=== PATIENT | male | born 1945 | race Caucasian/White ===

== ENCOUNTER 2025-04-03 11:07 | Inpatient (IN) | payer OTHER ==
[~2025-04-03] VITALS: Ht 167.6 cm; Wt 93.8 kg
--- NOTE | 2025-04-03 11:24 | ED.PDOC ---
HPI Comments This is a 79 year-old male who presents to the ED with a chief complaint of substernal chest pressure and mild SOB as of today. Patient reports Chief Complaint: Chest Pain Time Seen by MD: 11:24 Reviewed Notes: Medications, Allergies Allergies: Coded Allergies: Allopurinol (Verified Allergy, Unknown, 04/03/25) Information Source: Patient Mode of Arrival: Ambulatory Severity: Moderate Duration: Since onset Location: Substernal Constitutional: denies: chills, diaphoresis, fatigue, fever, malaise, sweats, weakness, others EENTM: denies: blurred vision, double vision, ear bleeding, ear discharge, ear drainage, ear pain, ear ringing, eye pain, eye redness, hearing loss, mouth pain, mouth swelling, nasal discharge, nose bleeding, nose congestion, nose pain, photophobia, tearing, throat pain, throat swelling, voice changes, others Respiratory: denies: cough, hemoptysis, orthopnea, SOB at rest, shortness of breath, SOB with excertion, stridor, wheezing, others Cardiovascular: reports: chest pain; denies: dizzy spells, diaphoresis, Dyspnea on exertion, edema, irregular heart beat, left arm pain, lightheadedness, palpitations, PND, syncope, others Gastrointestinal: denies: abdomen distended, abdominal pain, blood streaked bowels, constipated, diarrhea, dysphagia, difficulty swallowing, hematemesis, melena, nausea, poor appetite, poor fluid intake, rectal bleeding, rectal pain, vomiting, others Genitourinary: denies: burning, dysuria, flank pain, frequency, hematuria, incontinence, penile discharge, penile sore, pain, testicle pain, testicle swelling, urgency, others Neurological: denies: dizziness, fainting, headache, left sided numbness, left sided weakness, numbness, paresthesia, pre-existing deficit, right sided numbness, right sided weakness, seizure, speech problems, tingling, tremors, weakness, others Musculoskeletal: denies: back pain, gout, joint pain, joint swelling, muscle pain, muscle stiffness, neck pain, others Integumetry: denies: bruises, change in color, change in hair/nails, dryness, laceration, lesions, lumps, rash, wounds, others Allergic/Immunocompromised: denies: Difficulty Healing, Frequent Infections, Hives, Itching, others Hematologic/Lymphatic: denies: anemia, blood clots, easy bleeding, easy bruising, swollen glands, others Endocrine: denies: excessive hunger, excessive sweating, excessive thirst, excessive urination, flushing, intolerance to cold, intolerance to heat, unexplained weight gain, unexplained weight loss, others Psychiatric: denies: anxiety, bipolar disorder, depression, hopeless, panic disorder, schizophrenia, sleepless, suicidal, others All Other Systems: Reviewed and Negative EKG EKG : Pulse Rate (adult): 63 [place]: Normal Cardiac Rhythm: NSR Block: None Hypertrophy: None ST: Normal Comments Arrhythmia Was a procedure done? Was a procedure done?: No CP Differential Dx Differential Diagnosis: Angina, Anxiety / Panic Attack, Sinus Tachycardia Differential Diagnosis: HTN Essential Differential Diagnosis: Angina, Aortic dissection, Cholelithiasis, Gastritis, Pneumonia X-Ray, Labs, Meds, VS Vital Signs Date Time Temp Pulse Resp B/P (MAP) Pulse Ox O2 Delivery O2 Flow Rate FiO2 04/03/25 11:24 63 04/03/25 11:20 63 04/03/25 11:09 97.4 53 18 159/114 98 97.4 Lab Test 04/03/25 11:24 Range/Units White Blood Count 9.2 4.4-10.8 10^3/uL Red Blood Count 4.75 4.5-5.90 10^6/uL Hemoglobin 15.7 13.5-17.5 g/dL Hematocrit 44.7 41.0-53.0 % Mean Corpuscular Volume 93.9 80.0-100.0 fL Mean Corpuscular Hemoglobin 33.0 H 28.0-32.0 pg Mean Corpuscular Hemoglobin Concent 35.1 32.0-36.0 g/dL Red Cell Distribution Width 14.0 11.8-14.3 % Platelet Count 237 140-450 10^3/uL Mean Platelet Volume 8.2 6.9-10.8 fL Neutrophils (%) (Auto) 69.2 37.0-80.0 % Lymphocytes (%) (Auto) 18.5 10.0-50.0 % Monocytes (%) (Auto) 7.5 0.0-12.0 % Eosinophils (%) (Auto) 3.7 0.0-7.0 % Basophils (%) (Auto) 1.1 0.0-2.0 % Neutrophils # (Auto) 6.4 1.6-8.6 10 ^3/uL Lymphocytes # (Auto) 1.7 0.4-5.4 10 ^3/uL Monocytes # (Auto) 0.7 0-1.3 10 ^3/uL Eosinophils # (Auto) 0.3 0-0.8 10 ^3/uL Basophils # (Auto) 0.1 0-0.2 10 ^3/uL Nucleated Red Blood Cells 0.5 % Sodium Level Pending Potassium Level Pending Chloride Level Pending Carbon Dioxide Level Pending Anion Gap Pending Blood Urea Nitrogen Pending Creatinine Pending Glomerular Filtration Rate Calc Pending BUN/Creatinine Ratio Pending Serum Glucose Pending Calcium Level Pending Troponin I High Sensitivity Pending Images Reviewed?: Images reviewed and evaluated by me Time of 1ST Reevaluation: 12:31 Reevaluation 1ST: Unchanged Patient Education/Counseling: Diagnosis, Treatment Family Education/Counseling: No Family Present SEPSIS Sepsis Screen Date sepsis recognized/suspect: Apr 03, 2025 Time Sepsis recognized/suspect: 1112 Recent Procedure: No On Antibiotic Therapy: No Respiratory Rate >20: No Heart Rate >90: No Temp<36 C (96.8 F) or >38.3 C: No SBP <90 or MAP <65 mmHG: No New Acute Mental Status Change: No Is the patient on CPAP, BIPAP,: No Physician Orders Chest Portable (04/03/25 11:16) Troponin-I Hs (04/03/25 11:16) Electrocardigram (04/03/25 11:16) Troponin-I Hs (04/03/25 12:16) Troponin-I Hs (04/03/25 14:16) Electrocardigram (04/03/25 12:16) Electrocardigram (04/03/25 14:16) Basic Metabolic Panel (04/03/25 11:16) Vital Signs Date Time Temp Pulse Resp B/P (MAP) Pulse Ox O2 Delivery O2 Flow Rate FiO2 04/03/25 11:24 63 04/03/25 11:20 63 04/03/25 11:09 97.4 53 18 159/114 98 97.4 Laboratory Tests Test 04/03/25 11:24 White Blood Count 9.2 10^3/uL (4.4-10.8) Critical Care Note Critical Care Time?: No Stability Stability form required: No Heart Score Heart Score: Heart Score Response (Comments) Value History Moderate Suspicious 1 EKG Normal 0 Age >65 2 Risk Factors N/A 0 Troponin N/A 0 Total 3 I personally scribed for CARLOS HORVATH MD ([email or web address]) on 04/03/25 at 11:24. Electronically submitted by Nellie Downing ([employer]). I personally scribed for CARLOS HORVATH MD ([email or web address]) on 04/03/25 at 11:48. Electronically submitted by Nellie Downing ([employer]). CARLOS HORVATH MD Apr 03, 2025 11:24
[2025-04-03 11:33] LABS: Hematocrit 44.7 % (41.0-53.0); Hemoglobin 15.7 g/dL (13.5-17.5); Mean Corpuscular Hemoglobin 33.0 pg (28.0-32.0); Mean Corpuscular Volume 93.9 fL (80.0-100.0); Nucleated Red Blood Cells % 0.5 %
[2025-04-03 11:43] LABS: Chloride 105 mmol/L (98-107); Potassium 4.0 mmol/L (3.5-5.1); Sodium 142 mmol/L (136-145)
[2025-04-03 11:44] LABS: Anion Gap 12 (5-15); Carbon Dioxide 25 mmol/L (20-31)
[2025-04-03 11:45] LABS: Calcium 9.5 mg/dL (8.7-10.4)
[2025-04-03 11:50] LABS: BUN/Creatinine Ratio 13.8 (10.0-20.0); Blood Urea Nitrogen 23 mg/dL (9-23)
[2025-04-03 11:52] LABS: Glucose 128 mg/dL (74-106)
--- NOTE | 2025-04-03 11:52 | ED.PDOC ---
History of Present Illness HPI Comments This is a 79 year-old male with a PMHx of Hypotension, DM, and thyroid, who presents to the ED with a chief complaint of wellness check. Patient reports experiencing chest pain yesterday, radiating to back. Patient came to the ED today upon epigastric abdominal "pressure" like sensation and mild SOB. Patient denies any currently chest pain or further symptoms at this time. Patients vitals are stable upon evaluation. Chief Complaint: Chest Pain Time Seen by MD: 11:27 Reviewed Notes: Medications, Allergies Allergies: Coded Allergies: Allopurinol (Verified Allergy, Unknown, 04/03/25) Home Meds Reported Medications Levothyroxine Sodium (Levothyroxine Sodium) 112 Mcg Tab, 1 TAB PO DAILY, #30 TAB 5 Refills 04/03/25 Febuxostat (Uloric) 40 Mg Tab, 1 TAB PO DAILY, #90 TAB 1 Refill 04/03/25 Atenolol (Atenolol) 25 Mg Tab, 1 TAB PO DAILY, #30 TAB 5 Refills 04/03/25 Hydrochlorothiazide (Hydrochlorothiazide) 25 Mg Tab, 1 TAB PO DAILY, #30 TAB 5 Refills 04/03/25 Amlodipine Besylate (NORVASC TABLET) 5 Mg Tb, 1 TAB PO DAILY, #30 TAB 5 Refills 04/03/25 Apixaban Base (ELIQUIS) 5 Mg Tab, 5 MG PO BID, TAB 04/03/25 Losartan Potassium (Losartan Potassium) 50 Mg Tab, 1 TAB PO DAILY, #30 TAB 5 Refills 04/03/25 Information Source: Patient Mode of Arrival: Ambulatory Severity: Moderate Timing: Hours Duration: Since onset Past Medical History PAST MEDICAL HISTORY: High Lipids, Hypotension, Thyroid Surgical History: Denies all surgeries Family History Family History: Reviewed,noncontributory to illness, No family hx of Cancer, No family hx of DM, No family hx of Heart vicky, No family hx of HTN, No family hx ofKidney vicky, No family hx of Liver vicky, No family hx of Lung vicky, No family hx of Stroke Social History Smoker: Non-Smoker Alcohol: Denies ETOH Use Drugs: Denies Drug Use Lives In: Home Constitutional: denies: chills, diaphoresis, fatigue, fever, malaise, sweats, weakness, others EENTM: denies: blurred vision, double vision, ear bleeding, ear discharge, ear drainage, ear pain, ear ringing, eye pain, eye redness, hearing loss, mouth pain, mouth swelling, nasal discharge, nose bleeding, nose congestion, nose pain, photophobia, tearing, throat pain, throat swelling, voice changes, others Respiratory: reports: shortness of breath; denies: cough, hemoptysis, orthopnea, SOB at rest, SOB with excertion, stridor, wheezing, others Cardiovascular: reports: chest pain; denies: dizzy spells, diaphoresis, Dyspnea on exertion, edema, irregular heart beat, left arm pain, lightheadedness, palpitations, PND, syncope, others Gastrointestinal: reports: abdominal pain (epigastric pressure ); denies: abdomen distended, blood streaked bowels, constipated, diarrhea, dysphagia, difficulty swallowing, hematemesis, melena, nausea, poor appetite, poor fluid intake, rectal bleeding, rectal pain, vomiting, others Genitourinary: denies: burning, dysuria, flank pain, frequency, hematuria, incontinence, penile discharge, penile sore, pain, testicle pain, testicle swelling, urgency, others Neurological: denies: dizziness, fainting, headache, left sided numbness, left sided weakness, numbness, paresthesia, pre-existing deficit, right sided numbness, right sided weakness, seizure, speech problems, tingling, tremors, weakness, others Musculoskeletal: denies: back pain, gout, joint pain, joint swelling, muscle pain, muscle stiffness, neck pain, others Integumetry: denies: bruises, change in color, change in hair/nails, dryness, laceration, lesions, lumps, rash, wounds, others Allergic/Immunocompromised: denies: Difficulty Healing, Frequent Infections, Hives, Itching, others Hematologic/Lymphatic: denies: anemia, blood clots, easy bleeding, easy bruising, swollen glands, others Endocrine: denies: excessive hunger, excessive sweating, excessive thirst, excessive urination, flushing, intolerance to cold, intolerance to heat, unexplained weight gain, unexplained weight loss, others Psychiatric: denies: anxiety, bipolar disorder, depression, hopeless, panic disorder, schizophrenia, sleepless, suicidal, others All Other Systems: Reviewed and Negative Physical Exam General Appearance: Moderate Distress HEENT: Normal ENT Inspection, Pharynx Normal, TMs Normal Neck: Full Range of Motion, Non-Tender, Normal, Normal Inspection Respiratory: Chest Non-Tender, Lungs Clear, No Accessory Muscle Use, No Respiratory Distress, Normal Breath Sounds Cardiovascular: No Edema, No JVD, No Murmur, No Gallop, Normal Peripheral Pulses, Regular Rate/Rhythm Breast Exam: Deferred Gastrointestinal: No Organomegaly, Non Tender, No Pulsatile Mass, Normal Bowel Sounds, Soft Genitalia: Deferred Pelvic: Deferred Rectal: Deferred Extremities: No calf tenderness, Normal capillary refill, Normal inspection, Normal range of motion, Non-tender, No pedal edema Musculoskeletal : Apperance: Normal Neurologic: Alert, house admin II-XII nml as Tested, No Motor Deficits, Normal Affect, Normal Mood, No Sensory Deficits Cerebellar Function: Normal Reflexes: Normal Skin: Dry, Normal Color, Warm Peripheral Pulses: 3+ Radial (R), 3+ Radial (L) Lymphatic: No Adenopathy Was a procedure done? Was a procedure done?: No Differential Dx Considerations may include: Anemia Electrolyte imbalance X-Ray, Labs, Meds, VS Vital Signs Date Time Temp Pulse Resp B/P (MAP) Pulse Ox O2 Delivery O2 Flow Rate FiO2 04/03/25 13:46 73 17 96 Room Air 04/03/25 13:46 97.6 63 17 169/87 (114) 96 97.6 04/03/25 12:34 53 04/03/25 11:24 63 04/03/25 11:20 63 04/03/25 11:09 97.4 53 18 159/114 98 97.4 Lab Test 04/03/25 12:20 04/03/25 11:24 Range/Units Troponin I High Sensitivity 5 4 </=54 ng/L White Blood Count 9.2 4.4-10.8 10^3/uL Red Blood Count 4.75 4.5-5.90 10^6/uL Hemoglobin 15.7 13.5-17.5 g/dL Hematocrit 44.7 41.0-53.0 % Mean Corpuscular Volume 93.9 80.0-100.0 fL Mean Corpuscular Hemoglobin 33.0 H 28.0-32.0 pg Mean Corpuscular Hemoglobin Concent 35.1 32.0-36.0 g/dL Red Cell Distribution Width 14.0 11.8-14.3 % Platelet Count 237 140-450 10^3/uL Mean Platelet Volume 8.2 6.9-10.8 fL Neutrophils (%) (Auto) 69.2 37.0-80.0 % Lymphocytes (%) (Auto) 18.5 10.0-50.0 % Monocytes (%) (Auto) 7.5 0.0-12.0 % Eosinophils (%) (Auto) 3.7 0.0-7.0 % Basophils (%) (Auto) 1.1 0.0-2.0 % Neutrophils # (Auto) 6.4 1.6-8.6 10 ^3/uL Lymphocytes # (Auto) 1.7 0.4-5.4 10 ^3/uL Monocytes # (Auto) 0.7 0-1.3 10 ^3/uL Eosinophils # (Auto) 0.3 0-0.8 10 ^3/uL Basophils # (Auto) 0.1 0-0.2 10 ^3/uL Nucleated Red Blood Cells 0.5 % Prothrombin Time 11.4 9.3-11.8 sec Prothrombin Time INR 1.08 0.9-1.15 Activated Partial Thromboplast Time 28.2 24.5-34.5 SEC Sodium Level 142 136-145 mmol/L Potassium Level 4.0 3.5-5.1 mmol/L Chloride Level 105 98-107 mmol/L Carbon Dioxide Level 25 20-31 mmol/L Anion Gap 12 5-15 Blood Urea Nitrogen 23 9-23 mg/dL Creatinine 1.67 H 0.700-1.30 mg/dL Glomerular Filtration Rate Calc 42 >90 mL/min BUN/Creatinine Ratio 13.8 10.0-20.0 Serum Glucose 128 H 74-106 mg/dL Hemoglobin A1c 4.7 <5.7 % A1C Calcium Level 9.5 8.7-10.4 mg/dL Phosphorus Level 2.3 L 2.4-5.1 mg/dL Magnesium Level 2.2 1.6-2.6 mg/dL Triglycerides Level 223 H < 150 mg/dL Cholesterol Level 165 < 200 mg/dL LDL Cholesterol 117 H < 100 mg/dL HDL Cholesterol 29 L 40-59 mg/dL Lipase 56 H 12-53 U/L Vitamin B12 Level Pending Vitamin D 25-Hydroxy Pending Thyroid Stimulating Hormone (TSH) 29.64 H 0.55-4.78 uIU/mL Patient alert. Complaining of chest pain. Stated that he started to have shortness a breath. Blood sugar slightly elevated. Kidney function is slightly elevated. WBC within normal limits. Blood pressure elevated. Cardiac marker within normal limits. EKG does show old changes. Explained to the patient. Continue monitoring. Time of 1ST Reevaluation: 12:31 Reevaluation 1ST: Unchanged Patient Education/Counseling: Diagnosis, Treatment, Prognosis Family Education/Counseling: No Family Present SEPSIS Sepsis Screen Date sepsis recognized/suspect: Apr 03, 2025 Time Sepsis recognized/suspect: 1111 Recent Procedure: No On Antibiotic Therapy: No Respiratory Rate >20: No Heart Rate >90: No Temp<36 C (96.8 F) or >38.3 C: No SBP <90 or MAP <65 mmHG: No New Acute Mental Status Change: No Is the patient on CPAP, BIPAP,: No Physician Orders Chest Portable (04/03/25 11:16) Electrocardigram (04/03/25 14:16) Vital Signs Date Time Temp Pulse Resp B/P (MAP) Pulse Ox O2 Delivery O2 Flow Rate FiO2 04/03/25 13:46 73 17 96 Room Air 04/03/25 13:46 97.6 63 17 169/87 (114) 96 97.6 04/03/25 12:34 53 04/03/25 11:24 63 04/03/25 11:20 63 04/03/25 11:09 97.4 53 18 159/114 98 97.4 Laboratory Tests Test 04/03/25 11:24 White Blood Count 9.2 10^3/uL (4.4-10.8) Departure 1 Departure Time of Disposition: 12:31 Impression: Primary Impression: Chest pain of unknown etiology Disposition: ADMITTED INPATIENT Admit to: Med Surg Condition: Guarded Critical Care Note Critical Care Time?: No Stability Stability form required: No Heart Score Heart Score: Heart Score Response (Comments) Value History Slightly Suspicious 0 EKG Normal 0 Age >65 2 Risk Factors 1 or 2 risk factors 1 Troponin Normal limit 0 Total 3 I personally scribed for CARLOS HORVATH MD ([email or web address]) on 04/03/25 at 11:52. Electronically submitted by Nellie Downing ([employer]). CARLOS HORVATH MD Apr 03, 2025 11:52
--- NOTE | 2025-04-03 12:04 | DVH ---
CHEST RADIOGRAPH Indication: cp Technique: Single frontal view of the chest was obtained Comparison: None FINDINGS: Lines and Tubes: None Lungs: Linear atelectasis or scarring above the right diaphragm. Pleura: No effusion. No pneumothorax. Cardiomediastinal contours: Upper limits of normal Bones: No acute osseous abnormality. IMPRESSION: 1. Right lower lobe linear atelectasis or scarring. There are no prior studies for comparison.
--- NOTE | 2025-04-03 12:36 | ECG ---
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
[2025-04-03] MEDS ORDERED: ACETAMINOPHEN 325 MG TAB PO PRN (14:30)
[2025-04-03] MEDS ORDERED: ONDANSETRON HCL 4 MG/2 ML VIAL IV PRN (14:30)
[2025-04-03] MEDS ORDERED: NITROGLYCERIN 0.4 MG SL TAB SL PRN (14:30)
[2025-04-03] MEDS ORDERED: MORPHINE SULFATE INJ 2 MG/ml SYRG IV PRN ×2 (14:30)
[2025-04-03] MEDS: ENOXAPARIN SOD 40 MG/0.4 ML SYRINGE SC ONE (14:30)
--- NOTE | 2025-04-03 14:37 | ECG ---
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
--- NOTE | 2025-04-03 14:53 | DVHHPRES ---
History of Present Illness Resident Creating Document: JOYA BLANCO History of Present Illness Bob Orozco is a 79-year-old male patient who presents to the ED with chief complaint of pressure-like epigastric/retrosternal chest pain intensity 2/10 in associated with hypertension and dyspnea Functional Class II three days before his admission. Patient is compliant with medication. Patient reports for the past month patient has been with hypertension, which was hard to control, PCP saw him in modify his medication. Patient also describes that he feels that sometimes he skips a beat. Denies any other associated symptoms Past medical history: Hypertension, dyslipidemia, fatty liver, CKD stage 3, paroxysmal atrial fibrillation (chads Vasc three), completed stress test 20 years ago which was negative, hypothyroidism, skin cancer in right shoulder status post resection. Surgical history: Skin cancer resection Family history: Noncontributory Social history: Lives in [place] alone (next of kin is daughter). Ex tobacco abuse (30 pack-year history of smoking) quit in 1998. 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 Allergies: Allopurinol Home medication: Losartan 50 mg p.o. daily, apixaban 5 mg p.o. b.i.d., amlodipine 5 mg p.o. daily, hydrochlorothiazide 25 mg p.o. daily, atenolol 25 mg p.o. daily, febuxostat 40 mg p.o. daily, levothyroxine 112 mcg p.o. daily Patient seen and examined at bedside. Currently has no new complaints. Patient was admitted for further evaluation Past Medical History Per HPI Past Surgical History Per HPI Family History Per HPI Past Social History Per HPI Review of Systems Review of Systems Per HPI Allergies: Coded Allergies: Allopurinol (Verified Allergy, Unknown, 04/03/25) Medications Current Medications Medications Dose Ordered Sig/Wilder Route Start Time Stop Time Status Last Admin Dose Admin Acetaminophen 325 mg Q4HP PRN PO 04/03/25 14:30 Ondansetron HCl 4 mg Q4HP PRN IV 04/03/25 14:30 Morphine Sulfate 2 mg Q4HPRN PRN IV 04/03/25 14:30 Enoxaparin Sodium 40 mg DAILY SC 04/04/25 10:00 UNV Nitroglycerin 0.4 mg Q5MINP PRN SL 04/03/25 14:30 Morphine Sulfate 2 mg Q30M PRN IV 04/03/25 14:30 Aspirin 81 mg DAILY PO 04/04/25 10:00 Atorvastatin Calcium 80 mg HS PO 04/03/25 22:00 Exam Vital Signs Vital Signs Date Time Temp Pulse Resp B/P (MAP) Pulse Ox O2 Delivery O2 Flow Rate FiO2 04/03/25 13:46 73 17 96 Room Air 04/03/25 13:46 97.6 169/87 (114) 97.6 Exam Patient lying in bed, in no acute distress General: Lucid, afebrile, mucosae are moist Cardiovascular: Regularly irregular rhythm, Normal S1 and S2. No murmurs, gallops or rubs Respiratory: Normal ventilation mechanics. Clear lung sounds on auscultation Abdomen: Soft, nontender, no organomegaly, normal bowel sounds MSK/skin: Mobilizes 4 limbs. Skin is dry and warm Neurological: Oriented in 3 spheres. No motor no sensitive deficits. Pupils are isocoric and reactive Labs/Xrays Labs Test 04/03/25 12:20 04/03/25 11:24 Range/Units Troponin I High Sensitivity 5 </=54 ng/L White Blood Count 9.2 4.4-10.8 10^3/uL Red Blood Count 4.75 4.5-5.90 10^6/uL Hemoglobin 15.7 13.5-17.5 g/dL Hematocrit 44.7 41.0-53.0 % Mean Corpuscular Volume 93.9 80.0-100.0 fL Mean Corpuscular Hemoglobin 33.0 H 28.0-32.0 pg Mean Corpuscular Hemoglobin Concent 35.1 32.0-36.0 g/dL Red Cell Distribution Width 14.0 11.8-14.3 % Platelet Count 237 140-450 10^3/uL Mean Platelet Volume 8.2 6.9-10.8 fL Neutrophils (%) (Auto) 69.2 37.0-80.0 % Lymphocytes (%) (Auto) 18.5 10.0-50.0 % Monocytes (%) (Auto) 7.5 0.0-12.0 % Eosinophils (%) (Auto) 3.7 0.0-7.0 % Basophils (%) (Auto) 1.1 0.0-2.0 % Neutrophils # (Auto) 6.4 1.6-8.6 10 ^3/uL Lymphocytes # (Auto) 1.7 0.4-5.4 10 ^3/uL Monocytes # (Auto) 0.7 0-1.3 10 ^3/uL Eosinophils # (Auto) 0.3 0-0.8 10 ^3/uL Basophils # (Auto) 0.1 0-0.2 10 ^3/uL Nucleated Red Blood Cells 0.5 % Sodium Level 142 136-145 mmol/L Potassium Level 4.0 3.5-5.1 mmol/L Chloride Level 105 98-107 mmol/L Carbon Dioxide Level 25 20-31 mmol/L Anion Gap 12 5-15 Blood Urea Nitrogen 23 9-23 mg/dL Creatinine 1.67 H 0.700-1.30 mg/dL Glomerular Filtration Rate Calc 42 >90 mL/min BUN/Creatinine Ratio 13.8 10.0-20.0 Serum Glucose 128 H 74-106 mg/dL Calcium Level 9.5 8.7-10.4 mg/dL SEPSIS Sepsis Screen Date sepsis recognized/suspect: Apr 03, 2025 Time Sepsis recognized/suspect: 1112 Recent Procedure: No On Antibiotic Therapy: No Respiratory Rate >20: No Heart Rate >90: No Temp<36 C (96.8 F) or >38.3 C: No SBP <90 or MAP <65 mmHG: No New Acute Mental Status Change: No Is the patient on CPAP, BIPAP,: No Physician Orders Chest Portable (04/03/25 11:16) Electrocardigram (04/03/25 14:16) Admit (04/03/25 14:27) Code Status (04/03/25 14:27) Acetaminophen Tablet (Tylenol Tablet) (04/03/25 14:30) Ondansetron Hcl (Zofran) (04/03/25 14:30) Complete Blood Count (04/04/25 04:00) Comprehensive Metabolic Panel (04/04/25 04:00) Npo (Nothing By Mouth) Diet (04/03/25 Dinner) Echo 2d Mode Cardiac Dop (04/03/25 14:27) Morphine Sulfate Injection (04/03/25 14:30) Enoxaparin Sodium (Lovenox) (04/04/25 10:00) Nitroglycerin Sublingual (Ntrostat Subli (04/03/25 14:30) Morphine Sulfate Injection (04/03/25 14:30) Oxygen By Nasal Cannula (04/03/25 14:27) Stat Ekg For Chest Pain (04/03/25 14:27) Notify Md Of Changes From Base (04/03/25 14:27) Croze Cutter For 24 Hours (04/03/25 14:27) Emergency Dysrhythmia Protocol (04/03/25 14:27) Rhythm Strips Once Every Shift (04/03/25 14:27) Vitamin D, 25-Hydroxy (04/03/25 14:27) Vitamin B12 (04/03/25 14:) Urinalysis (04/03/25 14:27) Thyroid Stimulating Hormone (04/03/25 14:27) PTPTT (04/03/25 14:27) Phosphorus (04/03/25 14:27) Magnesium (04/03/25 14:27) Lipid Panel (04/03/25 14:27) Lipase (04/03/25 14:27) Lactic Acid W/ Reflex Order (04/03/25 14:27) Hemoglobin A1c (04/03/25 14:27) Drug Screen (04/03/25 14:27) Aspirin Tablet (04/04/25 10:00) Atorvastatin (Lipitor) (04/03/25 22:00) Enoxaparin Sodium (Lovenox) (04/03/25 14:30) Vital Signs Date Time Temp Pulse Resp B/P (MAP) Pulse Ox O2 Delivery O2 Flow Rate FiO2 04/03/25 13:46 73 17 96 Room Air 04/03/25 13:46 97.6 63 17 169/87 (114) 96 97.6 04/03/25 12:34 53 04/03/25 11:24 63 04/03/25 11:20 63 04/03/25 11:09 97.4 53 18 159/114 98 97.4 Laboratory Tests Test 04/03/25 11:24 White Blood Count 9.2 10^3/uL (4.4-10.8) Assessment/Plan Assessment/Plan ASSESSMENT Rule out acute coronary syndrome Severe hypothyroidism 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 Troponin x3 negative. Mild pressure-like epigastric/retrosternal pain intensity 2/10 which appears in Functional Class II. Ordered echocardiogram His dye stand loader is Dr. Blair. Evaluate requirement of cardiology evaluation during this time. Will be decided after echocardiogram results Continue metoprolol and on enoxaparin for atrial fibrillation. Ordered TSH which was elevated (29.64). Ordered free T4 and total T3. Currently continue with home dose of levothyroxine (112 mcg p.o. daily). May have to increase during admission. Goals of care discussed with patient for over 18 minutes: Full code status Discussed plan with Dr. Ramirez, patient and nurses: Admit patient to telemetry. Ordered echocardiogram. Control hypothyroidism. Plan discussed with: Patient, Daughter, Other (Nurses) My Orders Orders - JOYA BLANCO RESIDENT Procedure Category Date Status Time Admit ADMIT 04/03/25 Transmitted 14:27 Code Status CODE 04/03/25 Transmitted 14:27 Acetaminophen Tablet PHA 04/03/25 In Process (Tylenol Tablet) 14:30 Ondansetron Hcl PHA 04/03/25 In Process (Zofran) 14:30 Complete Blood Count LAB 04/04/25 Verified 04:00 Comprehensive LAB 04/04/25 Verified Metabolic Panel 04:00 Npo (Nothing By DIET 04/03/25 Transmitted Mouth) Diet Dinner Echo 2d Mode Cardiac US 04/03/25 Logged DOP 14:27 Morphine Sulfate PHA 04/03/25 In Process Injection 14:30 Enoxaparin Sodium PHA 04/04/25 Logged (Lovenox) 10:00 Nitroglycerin PHA 04/03/25 In Process Sublingual (Ntrostat 14:30 Morphine Sulfate PHA 04/03/25 In Process Injection 14:30 Oxygen By Nasal RT 04/03/25 Transmitted Cannula 14:27 Stat Ekg For Chest MADDI 04/03/25 In Process Pain 14:27 Notify Of Changes MADDI 04/03/25 In Process From Base 14:27 Croze Cutter For MADDI 04/03/25 In Process 24 Hours 14:27 Emergency Dysrhythmia MADDI 04/03/25 In Process Protocol 14:27 Rhythm Strips Once MADDI 04/03/25 In Process Every Shift 14:27 Vitamin D, 25-Hydroxy LAB 04/03/25 In Process 14:27 Vitamin B12 LAB 04/03/25 In Process 14:27 Urinalysis LAB 04/03/25 Logged 14:27 Thyroid Stimulating LAB 04/03/25 In Process Hormone 14:27 PTPTT LAB 04/03/25 In Process 14:27 Phosphorus LAB 04/03/25 In Process 14:27 Magnesium LAB 04/03/25 In Process 14:27 Lipid Panel LAB 04/03/25 In Process 14:27 Lipase LAB 04/03/25 In Process 14:27 Lactic Acid W/ Reflex LAB 04/03/25 Logged Order 14:27 Hemoglobin A1c LAB 04/03/25 In Process 14:27 Drug Screen LAB 04/03/25 Logged 14:27 Aspirin Tablet PHA 04/04/25 In Process 10:00 Atorvastatin (Lipitor) PHA 04/03/25 In Process 22:00 Enoxaparin Sodium PHA 04/03/25 Logged (Lovenox) 14:30 Date of Service: Apr 03, 2025 Billing Provider: YVETTE RAMIREZ MD Common Visit Codes: 41500-AQGRBBS INP/OBS CARE (HIGH) Secondary Visit Codes: 21150-[id number] CARE PLAN 30 MINUTES JOYA BLANCO RESIDENT Apr 03, 2025 14:53
[2025-04-03 15:07] LABS: INR 1.08 (0.9-1.15); Partial Thromboplastin Time 28.2 SEC (24.5-34.5); Prothrombin Time 11.4 sec (9.3-11.8)
[2025-04-03 15:10] VITALS: BP 156/86; PULSE 72; RESP 15; TEMP 97.8; O2SAT 94
[2025-04-03 15:27] LABS: Magnesium 2.2 mg/dL (1.6-2.6)
[2025-04-03 15:29] LABS: Cholesterol 165.0 mg/dL (< 200); HDL Cholesterol 29.0 mg/dL (40-59); Triglycerides 223.0 mg/dL (< 150)
[2025-04-03 15:39] LABS: Lipase 56.0 U/L (12-53)
[2025-04-03] MEDS ORDERED: LEVO112T4 PO (15:40)
[2025-04-03] MEDS ORDERED: AML5T PO (15:40)
[2025-04-03] MEDS ORDERED: ATEN-60 PO (15:40)
[2025-04-03] MEDS ORDERED: LOSA-534 PO (15:40)
[2025-04-03] MEDS ORDERED: APIX5TAB PO (15:40)
[2025-04-03] MEDS ORDERED: HYDR25TA4 PO (15:40)
[2025-04-03] MEDS ORDERED: FEBU40TA PO (15:40)
[2025-04-03 16:08] VITALS: PULSE 75; TEMP 97.8
[2025-04-03] MEDS: METOPROLOL TARTRATE 25 MG TAB PO ONE (17:34)
[2025-04-03] MEDS: LOSARTAN POTASSIUM 50 MG TAB PO ONE (17:35)
[2025-04-03 18:36] LABS: Amphetamine Screen, Urine Neg (NEGATIVE); Barbiturate Scree,Urine Neg (NEGATIVE); Benzodiazephine Screen, Urine Neg (NEGATIVE); Cannabinoid Screen, Urine Neg (NEGATIVE); Cocaine Screen, Urine Neg (NEGATIVE); Opiate Scree,Urine Neg (NEGATIVE); Phencyclidine Screen, Urine Neg (NEGATIVE)
[2025-04-03 18:37] LABS: Urine Protein, UAD Negative (Negative)
[2025-04-03 20:00] VITALS: PULSE 60; PULSE 65; O2SAT 0
[2025-04-03 21:00] VITALS: BP 104/72; PULSE 65; RESP 20; TEMP 97.7; O2SAT 94
[2025-04-03] MEDS: METOPROLOL TARTRATE 25 MG TAB PO SCH (22:00)
[2025-04-03] MEDS: ATORVASTATIN 20 MG TAB PO SCH (22:44)
[2025-04-03] MEDS: ENOXAPARIN SOD 100 MG/1 ML SYRINGE SC SCH (22:45)
[2025-04-04] VITALS (8 sets, daily range): BP systolic 118–145; BP diastolic 59–87; PULSE 51–142; RESP 18–21; TEMP 97.8–98.7; O2SAT 0–96
[2025-04-04] MEDS: LEVOTHYROXINE SODIUM 112 MCG TAB PO SCH (05:28)
[2025-04-04 06:01] LABS: Hematocrit 41.3 % (41.0-53.0); Hemoglobin 14.8 g/dL (13.5-17.5); Mean Corpuscular Hemoglobin 33.3 pg (28.0-32.0); Mean Corpuscular Volume 92.7 fL (80.0-100.0); Nucleated Red Blood Cells % 0.2 %
[2025-04-04 06:23] LABS: Alanine Aminotransferase 23 U/L (7-40); Albumin 4.5 g/dL (3.2-4.8); Anion Gap 13 (5-15); BUN/Creatinine Ratio 15.0 (10.0-20.0); Calcium 10.0 mg/dL (8.7-10.4); Carbon Dioxide 25 mmol/L (20-31); Chloride 103 mmol/L (98-107); Glucose 77 mg/dL (74-106); Potassium 3.9 mmol/L (3.5-5.1); Sodium 141 mmol/L (136-145); Total Protein 7.5 g/dL (5.7-8.2)
[2025-04-04 06:25] LABS: Alkaline Phosphatase 118 U/L (46-116); Bilirubin, Total 1.9 mg/dL (0.2-1.0); Blood Urea Nitrogen 27 mg/dL (9-23)
[2025-04-04] MEDS: LOSARTAN POTASSIUM 50 MG TAB PO SCH (09:26)
--- NOTE | 2025-04-04 09:56 | ECG ---
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
[2025-04-04] MEDS ORDERED: ENOXAPARIN SOD 40 MG/0.4 ML SYRINGE SC SCH (10:00)
[2025-04-04] MEDS: FEBUXOSTAT 40 MG PO SCH (10:12)
[2025-04-04 10:39] LABS: Free T4 (Free Thyroxine) 0.95 ng/dL (0.89-1.76)
--- NOTE | 2025-04-04 12:43 | DVHSR ---
APPROVED REPORT EXAM: Two-dimensional and M-mode echocardiogram with Doppler and color Doppler. Blood Pressure: 122/62 mmHg INDICATION Chest Pain RISK FACTORS Height: 5'6", Weight: 206 DIMENSIONS LVDd4.5 (3.8-5.7cm)LA (2D)3.3 (1.9-4.0cm)Aortic Root4.1 (2.0-3.7cm) LVDs3.3 (2.5-4.0cm)LA (MM) (1.9-4.0cm)Aortic Cusp Exc2.3 (1.5-2.0cm) EF (%) 52.0 (55-70%)Rt. Atrium3.5 (1.9-4.0cm)Asc. Aorta3.7 cm IVSd1.3 (0.7-1.1cm)RV (D) (1.8-2.4cm) Mitral Valve MitralMitral Stenosis E wave0.39m/sMV Mean GR.mmHg A wave0.93m/sMV Peak GR.mmHg E/A ratio0.42D MVAcm2 DECEL [id number] 1/2 Timems Aortic Valve Aortic ValveAortic Stenosis V10.99m/Heidi Mean GR.3mmHg V21.13m/Heidi Peak GR.5mmHg LVOT Diameter2.6 (1.8-2.4cm)Doppler AVA4.65cm2 Other Information Quality : Technically LimitedRhythm : Technically limited study due to body habitus. Conclusion lvewf 55% mild lvh normal rv function left atrium enlarged
--- NOTE | 2025-04-04 13:30 | DVHINCON2 ---
JOYA BLANCO RESIDENT 04/04/25 1330: Date Seen: Apr 04, [address] Esquivel History of Present Illness Bob Orozco is a 79-year-old male patient who presents to the ED with chief complaint of pressure-like/stabbing epigastric/retrosternal chest pain intensity 2/10, which lasted only 5 seconds, associated with hypertension and dyspnea Functional Class II three days before his admission. Patient is compliant with medication. Patient reports for the past month patient has been with hypertension, which was hard to control, PCP saw him and modified his medication. Patient also describes that he feels that sometimes he skips a beat. Denies any other associated symptoms Past medical history: Hypertension, dyslipidemia, fatty liver, CKD stage 3, paroxysmal atrial fibrillation (chads Vasc 3), completed stress test 20 years ago which was negative, hypothyroidism, skin cancer in right shoulder status post resection. Surgical history: Skin cancer resection Family history: Noncontributory Social history: Lives in [place] alone (next of kin is daughter). Ex tobacco abuse (30 pack-year history of smoking) quit in 1998. 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 Allergies: Allopurinol Home medication: Losartan 50 mg p.o. daily, apixaban 5 mg p.o. b.i.d., amlodipine 5 mg p.o. daily, hydrochlorothiazide 25 mg p.o. daily, atenolol 25 mg p.o. daily, febuxostat 40 mg p.o. daily, levothyroxine 112 mcg p.o. daily Patient seen and examined at bedside. Currently has no new complaints. Patient was admitted for further evaluation Past Medical History Per HPI Past Surgical History Per HPI Family History: Patient reports no known family medical history. Family History Per HPI Social History Per HPI Allergies: Coded Allergies: Allopurinol (Verified Allergy, Unknown, 04/03/25) Allergies Per HPI Home Meds Reported Medications Levothyroxine Sodium (Levothyroxine Sodium) 112 Mcg Tab, 1 TAB PO DAILY, #30 TAB 5 Refills 04/03/25 Febuxostat (Uloric) 40 Mg Tab, 1 TAB PO DAILY, #90 TAB 1 Refill 04/03/25 Atenolol (Atenolol) 25 Mg Tab, 1 TAB PO DAILY, #30 TAB 5 Refills 04/03/25 Hydrochlorothiazide (Hydrochlorothiazide) 25 Mg Tab, 1 TAB PO DAILY, #30 TAB 5 Refills 04/03/25 Amlodipine Besylate (NORVASC TABLET) 5 Mg Tb, 1 TAB PO DAILY, #30 TAB 5 Refills 04/03/25 Apixaban Base (ELIQUIS) 5 Mg Tab, 5 MG PO BID, TAB 04/03/25 Losartan Potassium (Losartan Potassium) 50 Mg Tab, 1 TAB PO DAILY, #30 TAB 5 Refills 04/03/25 Current Medications Current Medications Medications (Trade) Dose Ordered Sig/Wilder Route PRN Reason Start Time Stop Time Status Last Admin Acetaminophen (Tylenol Tablet) 325 mg Q4HP PRN PO MILD PAIN (1-3 PAIN SCALE) 04/03/25 14:30 Ondansetron HCl (Zofran) 4 mg Q4HP PRN IV NAUSEA / VOMITING 04/03/25 14:30 Morphine Sulfate 2 mg Q4HPRN PRN IV SEVERE PAIN (7-10 PAIN SCALE) 04/03/25 14:30 Enoxaparin Sodium (Lovenox) 40 mg DAILY SC 04/04/25 10:00 04/03/25 15:48 DC Nitroglycerin (Ntrostat Sublingual) 0.4 mg Q5MINP PRN SL FOR CHEST PAIN 04/03/25 14:30 Morphine Sulfate 2 mg Q30M PRN IV FOR CHEST PAIN 04/03/25 14:30 Aspirin 81 mg DAILY PO 04/04/25 10:00 04/04/25 09:26 Atorvastatin Calcium (Lipitor) 80 mg HS PO 04/03/25 22:00 04/03/25 22:44 Enoxaparin Sodium (Lovenox) 90 mg Q12HR SC 04/03/25 22:00 04/04/25 09:24 Levothyroxine Sodium (Synthroid Tablet) 112 mcg QAM@0600 PO 04/04/25 06:00 04/04/25 05:28 Losartan Potassium (Cozaar Tablet) 50 mg DAILY PO 04/04/25 10:00 04/04/25 09:26 Amlodipine Besylate (Norvasc Tablet) 5 mg DAILY PO 04/04/25 10:00 04/04/25 09:25 Metoprolol Tartrate (Lopressor Tablet) 12.5 mg BID PO 04/03/25 22:00 04/04/25 09:25 Patient Own Medication 1 DAILY PO 04/04/25 10:00 04/04/25 10:12 Review of Systems Per HPI Vital Signs Vital Signs Date Time Temp Pulse Resp B/P (MAP) Pulse Ox O2 Delivery O2 Flow Rate FiO2 04/04/25 09:26 145/87 04/04/25 09:25 140 04/04/25 08:35 98.7 18 94 98.7 04/04/25 08:00 Room Air* 0 21 Physical Exam Patient lying in bed, in no acute distress General: Lucid, afebrile, mucosae are moist Cardiovascular: Regularly irregular rhythm, Normal S1 and S2. No murmurs, gallops or rubs Respiratory: Normal ventilation mechanics. Clear lung sounds on auscultation Abdomen: Soft, nontender, no organomegaly, normal bowel sounds MSK/skin: Mobilizes 4 limbs. Skin is dry and warm Neurological: Oriented in 3 spheres. No motor no sensitive deficits. Pupils are isocoric and reactive Labs/Diagnostic Data Labs Test 04/04/25 04:45 04/03/25 14:48 04/03/25 14:27 04/03/25 12:20 Range/Units White Blood Count 9.5 4.4-10.8 10^3/uL Red Blood Count 4.46 L 4.5-5.90 10^6/uL Hemoglobin 14.8 13.5-17.5 g/dL Hematocrit 41.3 41.0-53.0 % Mean Corpuscular Volume 92.7 80.0-100.0 fL Mean Corpuscular Hemoglobin 33.3 H 28.0-32.0 pg Mean Corpuscular Hemoglobin Concent 35.9 32.0-36.0 g/dL Red Cell Distribution Width 14.1 11.8-14.3 % Platelet Count 229 140-450 10^3/uL Mean Platelet Volume 9.0 6.9-10.8 fL Neutrophils (%) (Auto) 61.3 37.0-80.0 % Lymphocytes (%) (Auto) 25.9 10.0-50.0 % Monocytes (%) (Auto) 8.0 0.0-12.0 % Eosinophils (%) (Auto) 4.0 0.0-7.0 % Basophils (%) (Auto) 0.8 0.0-2.0 % Neutrophils # (Auto) 5.8 1.6-8.6 10 ^3/uL Lymphocytes # (Auto) 2.4 0.4-5.4 10 ^3/uL Monocytes # (Auto) 0.8 0-1.3 10 ^3/uL Eosinophils # (Auto) 0.4 0-0.8 10 ^3/uL Basophils # (Auto) 0.1 0-0.2 10 ^3/uL Nucleated Red Blood Cells 0.2 % Sodium Level 141 136-145 mmol/L Potassium Level 3.9 3.5-5.1 mmol/L Chloride Level 103 98-107 mmol/L Carbon Dioxide Level 25 20-31 mmol/L Anion Gap 13 5-15 Blood Urea Nitrogen 27 H 9-23 mg/dL Creatinine 1.80 H 0.700-1.30 mg/dL Glomerular Filtration Rate Calc 38 >90 mL/min BUN/Creatinine Ratio 15.0 10.0-20.0 Serum Glucose 77 74-106 mg/dL Calcium Level 10.0 8.7-10.4 mg/dL Total Bilirubin 1.9 H 0.2-1.0 mg/dL Aspartate Amino Transferase (AST) 24 13-40 U/L Alanine Aminotransferase (ALT) 23 7-40 U/L Alkaline Phosphatase 118 H 46-116 U/L Total Protein 7.5 5.7-8.2 g/dL Albumin 4.5 3.2-4.8 g/dL Free Thyroxine (T4) Calculated 0.95 0.89-1.76 ng/dL Total Triiodothyronine (TT3) 0.68 0.60-1.81 ng/mL Lactic Acid Level 1.4 0.4-2.0 mmol/L Urine Color Yellow Yellow Urine Clarity Clear Clear Urine pH 6.0 5.0-9.0 Urine Specific [place] 1.013 1.001-1.035 Urine Protein Negative Negative Urine Ketones Negative Negative Urine Blood Negative Negative /uL Urine Nitrite Negative Negative Urine Bilirubin Negative Negative Urine Urobilinogen Normal Negative mg/dL Urine Leukocyte Esterase Negative Negative /uL Urine RBC <1 0 - 3 /hpf Urine Microscopic WBC < 1 0-3 /HPF Urine Squamous Epithelial Cells None seen <5 /hpf Urine Bacteria None seen None Seen /hpf Urine Sperm Present None Seen /hpf Urine Glucose Normal Normal mg/dL Urine Opiates Screen Neg NEGATIVE Urine Fentanyl Screen Neg NEGATIVE Urine Barbiturates Screen Neg NEGATIVE Urine Phencyclidine Screen Neg NEGATIVE Urine Amphetamines Screen Neg NEGATIVE Urine Benzodiazepines Screen Neg NEGATIVE Urine Cocaine Screen Neg NEGATIVE Urine Cannabinoids Screen Neg NEGATIVE Troponin I High Sensitivity 5 </=54 ng/L Test 04/03/25 11:24 Range/Units Prothrombin Time 11.4 9.3-11.8 sec Prothrombin Time INR 1.08 0.9-1.15 Activated Partial Thromboplast Time 28.2 24.5-34.5 SEC Hemoglobin A1c 4.7 <5.7 % A1C Phosphorus Level 2.3 L 2.4-5.1 mg/dL Magnesium Level 2.2 1.6-2.6 mg/dL Triglycerides Level 223 H < 150 mg/dL Cholesterol Level 165 < 200 mg/dL LDL Cholesterol 117 H < 100 mg/dL HDL Cholesterol 29 L 40-59 mg/dL Lipase 56 H 12-53 U/L Vitamin B12 Level 1988 H 211-911 pg/mL Vitamin D 25-Hydroxy 50.7 30.0-100 ng/mL Thyroid Stimulating Hormone (TSH) 29.64 H 0.55-4.78 uIU/mL Assessment Rule out acute coronary syndrome Severe hypothyroidism SUZY hemodynamically mediated (VMN) on CKD Paroxysmal atrial fibrillation (chads Vasc 3) - secondary hypercoagulability state Hypertension Dyslipidemia Obesity Plan/Recommendation EKG shows sinus rhythm with frequent PACs. Troponin x3 negative. Mild pressure-like/stabbing epigastric/retrosternal pain intensity 2/10 which, which lasts 5 seconds appears in Functional Class II. Ordered Stress test Completed echocardiogram: LVEF 55%, mild LVH, normal RV function, LAE Continue metoprolol and on enoxaparin for atrial fibrillation. Reviewed telemetry, patient presents paroxismal A-Fib episodes in RVRV (asymptomatic). Increased Metoprolol from 12.5mg to 25 mg PO bid Ordered TSH which was elevated (29.64). Ordered free T4 and total T3. Currently continue with home dose of levothyroxine (112 mcg p.o. daily). May have to increase during admission. Goals of care discussed with patient for over 18 minutes: Full code status Discussed plan with Dr. Swanson, patient and nurses: Admit patient to telemetry. Reviewed echocardiogram. Ordered stress test. Plan discussed with: Patient, Other (Nurses) NYHA Physical activity limitations: Class2(Slight)fatigue,sob Date of Service: Apr 04, 2025 Billing Provider: KARLIE RODRIGUEZ Sr., MD Cardiology Common Codes: 25595-SBTINXA INP/OBS CARE (High) Cardiology Secondary Visit Cod: [id number] CARE PLAN 30 MINUTES SAMANTHA SWANSON MD 04/05/25 1238: Family History: Patient reports no known family medical history. Allergies: Coded Allergies: Allopurinol (Verified Allergy, Unknown, 04/03/25) Home Meds Reported Medications Levothyroxine Sodium (Levothyroxine Sodium) 112 Mcg Tab, 1 TAB PO DAILY, #30 TAB 5 Refills 04/03/25 Febuxostat (Uloric) 40 Mg Tab, 1 TAB PO DAILY, #90 TAB 1 Refill 04/03/25 Atenolol (Atenolol) 25 Mg Tab, 1 TAB PO DAILY, #30 TAB 5 Refills 04/03/25 Hydrochlorothiazide (Hydrochlorothiazide) 25 Mg Tab, 1 TAB PO DAILY, #30 TAB 5 Refills 04/03/25 Amlodipine Besylate (NORVASC TABLET) 5 Mg Tb, 1 TAB PO DAILY, #30 TAB 5 Refills 04/03/25 Apixaban Base (ELIQUIS) 5 Mg Tab, 5 MG PO BID, TAB 04/03/25 Losartan Potassium (Losartan Potassium) 50 Mg Tab, 1 TAB PO DAILY, #30 TAB 5 Refills 04/03/25 Date of Service: Apr 04, 2025 Billing Provider: SAMANTHA SWANSON MD Cardiology Common Codes: NOT BILLABLE JOYA BLANCO Apr 04, 2025 13:30 SAMANTHA SWANSON MD Apr 05, 2025 12:38
[2025-04-04] MEDS: METOPROLOL TARTRATE 25 MG TAB PO ONE (16:01)
--- NOTE | 2025-04-04 20:02 | DVHPNRES ---
Progress Note Date Seen: Apr 04, 2025 Resident Creating Document: ZION ABARCA RESIDENT Has the PT tested + for MRSA If YES, has PT been informed?: No Medical Necessity Reason Pt with a Central, PICC or Fol: No Subjective Review of Systems Mr. Bob Orozco is a 79-year-old male, with past medical history of HTN, dyslipidemia, CKD, paroxysmal aFib and hypoparathyroidism. The patient came to the ED with chief complain of of chest pain episode that last a couple of minutes, the pain was 1-2/10, retrosternal, pressure-like pain, continue, onset at rest, irradiated to the epigastric area pressure like as well; associated with dyspnea. The patient reports he took 3 "baby aspirins" with improvement of the symptoms, also he report his blood pressure was in the high limit, this prompted his visit to the ED to get a check up. On further questioning, the patient reports that he was diagnosed with aFib after a COVID-19 infection, since then he is on eliquis 5mg bid. The patient denies fever, chills, diarrhea, flu-like symptoms, lightheadedness, syncope or other symptoms. In the ED: the BP was 159/114mmHg. Troponins were requested. The patient was admitted for further assessment and management. Past medical history: Hypertension, dyslipidemia, fatty liver, CKD stage 3, paroxysmal atrial fibrillation, completed stress test 20 years ago which was negative, hypothyroidism, skin cancer in right shoulder status post resection. Surgical history: Skin cancer resection Family history: Noncontributory Social history: Lives in [place] alone (next of kin is daughter). Ex tobacco abuse (30 pack-year history of smoking) quit in 1998. 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 Allergies: Allopurinol Home medication: Losartan 50 mg p.o. daily, apixaban 5 mg p.o. b.i.d., amlodipine 5 mg p.o. daily, hydrochlorothiazide 25 mg p.o. daily, atenolol 25 mg p.o. daily, febuxostat 40 mg p.o. daily, levothyroxine 112 mcg p.o. daily Hospital course: On 04/04/25, the patient was evaluated and examined at bedside. VS, labs and chart was reviewed. BP: improved with metoprolol and losartan. Troponin leves are wnl. The patient was tachycardic this morning, HR was: 142bpm, EKG shows sinus rhythm with frequent PACs; metoprolol tartare morning dose was administrated with improved in hear rate to 105bpm. Cardiology consult was placed, they recommended: increased to 12.5 to 25mg bid and a stress test was ordered. New ECHO reported: LVEF 55%, mild LVH, normal RV function, LAE. Also, TSH was elevated, T3 and T4 levels were ordered, levothyroxine dose might be increased for better control. The patient report feeling well, denies chest pain, he reports that sometimes he feels heart beats, no other new complaints. We will continue following up the progress of this patient. ROS: Constitutional: denies: chills, diaphoresis, fatigue, fever, malaise, sweats, weakness, others EENTM: denies: blurred vision, double vision, ear bleeding, ear discharge, ear drainage, ear pain, ear ringing, eye pain, eye redness, hearing loss, mouth pain, mouth swelling, nasal discharge, nose bleeding, nose congestion, nose pain, photophobia, tearing, throat pain, throat swelling, voice changes, others Respiratory: reports: shortness of breath has resolved; denies: cough, hemoptysis, orthopnea, SOB at rest, SOB with excertion, stridor, wheezing, others Cardiovascular: reports: chest pain resolved; denies: dizzy spells, diaphoresis, Dyspnea on exertion, edema, irregular heart beat, left arm pain, lightheadedness, palpitations, PND, syncope, others Gastrointestinal: reports: abdominal pain (epigastric pressure ); denies: abdomen distended, blood streaked bowels, constipated, diarrhea, dysphagia, difficulty swallowing, hematemesis, melena, nausea, poor appetite, poor fluid intake, rectal bleeding, rectal pain, vomiting, others Genitourinary: denies: burning, dysuria, flank pain, frequency, hematuria, incontinence, penile discharge, penile sore, pain, testicle pain, testicle swelling, urgency, others Neurological: denies: dizziness, fainting, headache, left sided numbness, left sided weakness, numbness, paresthesia, pre-existing deficit, right sided numbness, right sided weakness, seizure, speech problems, tingling, tremors, weakness, others Musculoskeletal: denies: back pain, gout, joint pain, joint swelling, muscle pain, muscle stiffness, neck pain, others Integumetry: denies: bruises, change in color, change in hair/nails, dryness, laceration, lesions, lumps, rash, wounds, others Allergic/Immunocompromised: denies: Difficulty Healing, Frequent Infections, Hives, Itching, others Hematologic/Lymphatic: denies: anemia, blood clots, easy bleeding, easy bruising, swollen glands, others Endocrine: denies: excessive hunger, excessive sweating, excessive thirst, excessive urination, flushing, intolerance to cold, intolerance to heat, unexplained weight gain, unexplained weight loss, others Psychiatric: denies: anxiety, bipolar disorder, depression, hopeless, panic disorder, schizophrenia, sleepless, suicidal, others Objective vital signs Vital Sign Date Time Temp Pulse Resp B/P (MAP) Pulse Ox O2 Delivery O2 Flow Rate FiO2 04/04/25 17:00 98.2 51 21 129/60 (83) 90 98.2 04/04/25 08:00 Room Air* 0 21 Total Intake and Output 04/03/25 04/03/25 04/04/25 15:00 23:00 07:00 Intake Total 800 ml Balance 800 ml medications Current Medications Medications Dose Ordered Sig/Wilder Route Start Time Stop Time Status Last Admin Dose Admin Acetaminophen 325 mg Q4HP PRN PO 04/03/25 14:30 Ondansetron HCl 4 mg Q4HP PRN IV 04/03/25 14:30 Morphine Sulfate 2 mg Q4HPRN PRN IV 04/03/25 14:30 Nitroglycerin 0.4 mg Q5MINP PRN SL 04/03/25 14:30 Morphine Sulfate 2 mg Q30M PRN IV 04/03/25 14:30 Aspirin 81 mg DAILY PO 04/04/25 10:00 04/04/25 09:26 81 MG Atorvastatin Calcium 80 mg HS PO 04/03/25 22:00 04/03/25 22:44 80 MG Enoxaparin Sodium 90 mg Q12HR SC 04/03/25 22:00 04/04/25 09:24 90 MG Levothyroxine Sodium 112 mcg QAM@0600 PO 04/04/25 06:00 04/04/25 05:28 112 MCG Losartan Potassium 50 mg DAILY PO 04/04/25 10:00 04/04/25 09:26 50 MG Amlodipine Besylate 5 mg DAILY PO 04/04/25 10:00 04/04/25 09:25 5 MG Patient Own Medication 1 DAILY PO 04/04/25 10:00 04/04/25 10:12 1 Metoprolol Tartrate 25 mg BID PO 04/04/25 22:00 Examination General Appearance: Non in distress, alert x3, oriented. HEENT: Normal ENT Inspection, Pharynx Normal, TMs Normal Neck: Full Range of Motion, Non-Tender, Normal, Normal Inspection Respiratory: Chest Non-Tender, Lungs Clear, No Accessory Muscle Use, No Respiratory Distress, Normal Breath Sounds Cardiovascular: No Edema, No JVD, No Murmur, No Gallop, Normal Peripheral Pulses, Regular Rate/Rhythm Gastrointestinal: Epigastric: Non Tender on deep palpation. Normal Bowel Sounds, Soft Extremities: No calf tenderness, Normal capillary refill, Normal inspection, Normal range of motion, Non-tender, No pedal edema Neurologic: Alert, clay burner II-XII nml as Tested, No Motor Deficits, Normal Affect, Normal Mood, No Sensory Deficits Skin: Dry, Normal Color, Warm Peripheral Pulses: 3+ Radial (R), 3+ Radial (L) Neurologic: No motor deficit, strength 5/5, sensation5/5, adequate mood. laboratory and microbiology Laboratory Tests 04/04/25 04:45 Test 04/04/25 04:45 Range/Units Serum Glucose 77 74-106 mg/dL Problem List/Assessment/Plan Problem List/Assessment/Plan #Rule out acute coronary syndrome/Angina #Paroxysmal atrial fibrillation Telemetry Troponin: 4, 5. ECHO 04/04/25: LVEF 55%, mild LVH, normal RV function, LAE [id number] Score: 3 Cardiac consult completed: Metoprolol increased to 25mg po bid Enoxaparin 90mg bid SC Stress test tomorrow 04/05/25. 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 Diet: Cardiac diet then, NPO after midnight for procedure (stress test on 04/05/25) DVT prophylaxis Goals of care discussed with the patient > 35 min. Discussed plan of care with Dr. Chung Code status: Full code PCP: Estefani Minor Plan discussed with: Patient, the patient agrees with the plan. Plan discussed with: Patient My Orders My Orders Orders - ZION ABARCA RESIDENT Procedure Category Date Status Time * Cardiology Consult CONS 04/04/25 Transmitted 11:37 Date of Service: Apr 04, 2025 Billing Provider: MANAN CHUNG MD Common Visit Codes: [id number] INP/OBS CARE(HIGH) ZION ABARCA RESIDENT Apr 04, 2025 20:02 MANAN CHUNG MD Apr 04, 2025 21:17
[2025-04-04] MEDS: METOPROLOL TARTRATE 25 MG TAB PO SCH (21:49)
[2025-04-05] VITALS (7 sets, daily range): BP systolic 97–145; BP diastolic 52–93; PULSE 63–94; RESP 17–20; TEMP 36.4; O2SAT 91–96
[2025-04-05 05:50] LABS: Hematocrit 44.2 % (41.0-53.0); Hemoglobin 15.5 g/dL (13.5-17.5); Mean Corpuscular Hemoglobin 32.8 pg (28.0-32.0); Mean Corpuscular Volume 93.5 fL (80.0-100.0); Nucleated Red Blood Cells % 0.1 %
[2025-04-05 06:09] LABS: Chloride 103 mmol/L (98-107); Potassium 4.6 mmol/L (3.5-5.1); Sodium 140 mmol/L (136-145)
[2025-04-05 06:10] LABS: Anion Gap 10 (5-15); Calcium 10.1 mg/dL (8.7-10.4); Carbon Dioxide 27 mmol/L (20-31)
[2025-04-05 06:15] LABS: BUN/Creatinine Ratio 14.1 (10.0-20.0); Glucose 80 mg/dL (74-106)
[2025-04-05 06:19] LABS: Blood Urea Nitrogen 29 mg/dL (9-23)
[2025-04-05] MEDS: REGADENOSON 0.4 MG/5 ML SYRG IV ONE (08:48)
--- NOTE | 2025-04-05 09:13 | DVHPNRES ---
Progress Note Date Seen: Apr 05, 2025 Resident Creating Document: JOYA BLANCO RESIDENT Has the PT tested + for MRSA If YES, has PT been informed?: No Medical Necessity Reason Pt with a Central, PICC or Fol: No Subjective Review of Systems Bob Orozco is a 79-year-old male patient who presents to the ED with chief complaint of pressure-like/stabbing epigastric/retrosternal chest pain intensity 2/10, which lasted only 5 seconds, associated with hypertension and dyspnea Functional Class II three days before his admission. Patient is compliant with medication. Patient reports for the past month patient has been with hypertension, which was hard to control, PCP saw him and modified his medication. Patient also describes that he feels that sometimes he skips a beat. Denies any other associated symptoms Past medical history: Hypertension, dyslipidemia, fatty liver, CKD stage 3, paroxysmal atrial fibrillation (chads Vasc 3), completed stress test 20 years ago which was negative, hypothyroidism, skin cancer in right shoulder status post resection. Surgical history: Skin cancer resection Family history: Noncontributory Social history: Lives in [place] alone (next of kin is daughter). Ex tobacco abuse (30 pack-year history of smoking) quit in 1998. 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 Allergies: Allopurinol Home medication: Losartan 50 mg p.o. daily, apixaban 5 mg p.o. b.i.d., amlodipine 5 mg p.o. daily, hydrochlorothiazide 25 mg p.o. daily, atenolol 25 mg p.o. daily, febuxostat 40 mg p.o. daily, levothyroxine 112 mcg p.o. daily Patient seen and examined at bedside. Currently has no new complaints. Patient was admitted for further evaluation Objective vital signs Vital Sign Date Time Temp Pulse Resp B/P (MAP) Pulse Ox O2 Delivery O2 Flow Rate FiO2 04/05/25 04:36 98.0 65 17 114/73 (87) 94 98.0 04/04/25 20:00 Room Air* 0 21 Total Intake and Output 04/04/25 04/04/25 04/05/25 15:00 23:00 07:00 Intake Total 800 ml 0 ml Balance 800 ml 0 ml medications Current Medications Medications Dose Ordered Sig/Wilder Route Start Time Stop Time Status Last Admin Dose Admin Acetaminophen 325 mg Q4HP PRN PO 04/03/25 14:30 Ondansetron HCl 4 mg Q4HP PRN IV 04/03/25 14:30 Morphine Sulfate 2 mg Q4HPRN PRN IV 04/03/25 14:30 Nitroglycerin 0.4 mg Q5MINP PRN SL 04/03/25 14:30 Morphine Sulfate 2 mg Q30M PRN IV 04/03/25 14:30 Aspirin 81 mg DAILY PO 04/04/25 10:00 04/04/25 09:26 81 MG Atorvastatin Calcium 80 mg HS PO 04/03/25 22:00 04/04/25 21:48 80 MG Enoxaparin Sodium 90 mg Q12HR SC 04/03/25 22:00 04/04/25 21:49 90 MG Losartan Potassium 50 mg DAILY PO 04/04/25 10:00 04/04/25 09:26 50 MG Amlodipine Besylate 5 mg DAILY PO 04/04/25 10:00 04/04/25 09:25 5 MG Patient Own Medication 1 DAILY PO 04/04/25 10:00 04/04/25 10:12 1 Metoprolol Tartrate 25 mg BID PO 04/04/25 22:00 04/04/25 21:49 25 MG Levothyroxine Sodium 125 mcg QAM@0600 PO 04/06/25 06:00 Examination Patient lying in bed, in no acute distress General: Lucid, afebrile, mucosae are moist Cardiovascular: Regularly irregular rhythm, Normal S1 and S2. No murmurs, gallops or rubs Respiratory: Normal ventilation mechanics. Clear lung sounds on auscultation Abdomen: Soft, nontender, no organomegaly, normal bowel sounds MSK/skin: Mobilizes 4 limbs. Skin is dry and warm Neurological: Oriented in 3 spheres. No motor no sensitive deficits. Pupils are isocoric and reactive laboratory and microbiology Laboratory Tests 04/05/25 05:00 Test 04/05/25 05:00 Range/Units Serum Glucose 80 74-106 mg/dL Problem List/Assessment/Plan Problem List/Assessment/Plan Assessment Ruled out acute coronary syndrome Severe hypothyroidism SUZY hemodynamically mediated (VMN) on CKD Paroxysmal atrial fibrillation (chads Vasc 3) - secondary hypercoagulability state Hypertension Dyslipidemia Obesity Plan/Recommendation EKG shows sinus rhythm with frequent PACs. Troponin x3 negative. Mild pressure-like/stabbing epigastric/retrosternal pain intensity 2/10 which, which lasts 5 seconds appears in Functional Class II. Ordered Stress test: Negative for ischemia. Completed echocardiogram: LVEF 55%, mild LVH, normal RV function, LAE Continue metoprolol and on enoxaparin for atrial fibrillation. Reviewed telemetry, patient presents paroxysmal A-Fib episodes in RVR (asymptomatic). Increased Metoprolol from 12.5mg to 25 mg PO bid Ordered TSH which was elevated (29.64). Ordered free T4 and total T3. Currently continue with home dose of levothyroxine (112 mcg p.o. daily). May have to increase during admission. Goals of care discussed with patient for over 18 minutes: Full code status Discussed plan with Dr. Blair, patient and nurses: Admit patient to telemetry. Reviewed echocardiogram. Completed stress test which was negative for ischemia. No further cardiological work up needed as in patient. Recommend follow up as outpatient. Cardiology will sign off. Please reconsult if deemed necessary. Plan discussed with: Patient, Other (Nurses) My Orders My Orders Orders - JOYA BLANCO RESIDENT Procedure Category Date Status Time Cardiolite Multiple NM 04/04/25 Logged 13:27 Metoprolol Tartrate PHA 04/04/25 In Process Tablet (Lopressor Ta 22:00 Npo After Midnight MADDI 04/05/25 In Process 00:00 Npo (Nothing By DIET 04/05/25 Transmitted Mouth) Diet Breakfast Visit Coding Cardiology RES Date of Service: Apr 05, 2025 Billing Provider: KARLIE RODRIGUEZ Sr., MD Cardiology Common Codes: [id number] HOSP CARE(High Cardiology Secondary Visit Cod: [id number] CARE PLAN 30 MINUTES JOYA BLANCO RESIDENT Apr 05, 2025 09:13
[2025-04-05] MEDS: SODIUM CHLORIDE 0.9% 500 ML IV ONE (11:42)
--- NOTE | 2025-04-05 12:02 | DVHSR ---
APPROVED REPORT Exam: Nuclear Stress Test BMI: 0 Stress Test Details HR Max Heart Rate (APMHR): 143.239525 bpm Target HR (85% APMHR): 121.385922 bpm BP ECG Stress ECG Conclusion lvef 60% no severe ischemia noted NM EXAM: Myocardial Perfusion REST/STRESS Imaging Protocol: Rest Tc-99m/Stress Tc-99m 2 days Resting Data Rest SPECT myocardial perfusion imaging was performed in supine position 60 minutes following the int ravenous injection of 10.5 mCi of Tc-99m Sestamibi. Time of rest injection: 14:01 Date: 04/04/2025 Time of rest imagin:01 Date: 04/04/2025 Administration Route: IV Administration Site: Right Arm Pharmacologic Stress Pharmacologic stress test was performed by injecting Regadenoson 0.4 mg IV push followed by the intra venous injection of 22.1 mCi of Tc-99m Sestamibi. Time of stress injection: 08:49 Date: 04/05/2025 Time of stress imagin:49 Date: 04/05/2025 Administration Route: IV Administration Site: Right Arm Gated Stress SPECT was performed 60 minutes after stress injection. The images were gated to evaluate regional wall motion and calculate left ventricular ejection fracti on. Stress only was performed in the Supine position. Nuclear Conclusion Nuclear Findings: negative for ischemia lvef 60% no severe ischemia noted
--- NOTE | 2025-04-05 12:19 | DVH ---
INDICATION: SUZY TECHNIQUE: Multiple real-time sonographic images of the kidneys and bladder were obtained. COMPARISON: None FINDINGS: The right kidney measures 12 cm in length, which is normal in size. There is increased echo genicity of the right kidney. No hydronephrosis. Multiple right renal cysts measuring up to 4.2 cm. The left kidney measures 11 cm in length, which is normal in size. There is increased echogenicity of the left kidney. No hydronephrosis. No large intraluminal masses are seen in the bladder. IMPRESSION: Echogenic bilateral kidneys suggestive of chronic medical renal disease. No hydronephrosis. Multiple right renal cysts measuring up to 4.2 cm.
--- NOTE | 2025-04-05 15:45 | DVHINCON2 ---
Date Seen: Apr 04, 2025 Referring Physician [facility]. Reason for Consultation Please resume the care of the patient has a primary from today onwards. History of Present Illness 79-year-old male with a known history of hypertension, dyslipidemia, fatty liver, CKD stage 3, paroxysmal AFib currently in normal sinus rhythm, previous history of tobacco/alcohol/methamphetamine use presented to the hospital with a epigastric retrosternal chest pain along with shortness of breaths. Patient was eventually recommended to be admitted for ruling out acute OH. Patient is currently being scheduled for stress test by Cardiology. Patient is currently denies any chest pain shortness of breaths. Past Medical History Hypertension Dyslipidemia CKD stage 3 Past Surgical History History of skin cancer status post surgery. Family History: Patient reports no known family medical history. Allergies: Coded Allergies: Allopurinol (Verified Allergy, Unknown, 04/03/25) Home Meds Reported Medications Levothyroxine Sodium (Levothyroxine Sodium) 112 Mcg Tab, 1 TAB PO DAILY, #30 TAB 5 Refills 04/03/25 Febuxostat (Uloric) 40 Mg Tab, 1 TAB PO DAILY, #90 TAB 1 Refill 04/03/25 Atenolol (Atenolol) 25 Mg Tab, 1 TAB PO DAILY, #30 TAB 5 Refills 04/03/25 Hydrochlorothiazide (Hydrochlorothiazide) 25 Mg Tab, 1 TAB PO DAILY, #30 TAB 5 Refills 04/03/25 Amlodipine Besylate (NORVASC TABLET) 5 Mg Tb, 1 TAB PO DAILY, #30 TAB 5 Refills 04/03/25 Apixaban Base (ELIQUIS) 5 Mg Tab, 5 MG PO BID, TAB 04/03/25 Losartan Potassium (Losartan Potassium) 50 Mg Tab, 1 TAB PO DAILY, #30 TAB 5 Refills 04/03/25 Current Medications Current Medications Medications (Trade) Dose Ordered Sig/Wilder Route PRN Reason Start Time Stop Time Status Last Admin Metoprolol Tartrate (Lopressor Tablet) 25 mg BID PO 04/04/25 22:00 04/05/25 11:33 Levothyroxine Sodium (Synthroid Tablet) 125 mcg QAM@0600 PO 04/06/25 06:00 Review of Systems Twelve review of system are negative besides mentioned above. 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 Labs/Diagnostic Data Labs Test 04/05/25 05:00 04/04/25 04:45 04/03/25 14:48 04/03/25 14:27 Range/Units White Blood Count 10.3 4.4-10.8 10^3/uL Red Blood Count 4.72 4.5-5.90 10^6/uL Hemoglobin 15.5 13.5-17.5 g/dL Hematocrit 44.2 41.0-53.0 % Mean Corpuscular Volume 93.5 80.0-100.0 fL Mean Corpuscular Hemoglobin 32.8 H 28.0-32.0 pg Mean Corpuscular Hemoglobin Concent 35.1 32.0-36.0 g/dL Red Cell Distribution Width 14.4 H 11.8-14.3 % Platelet Count 227 140-450 10^3/uL Mean Platelet Volume 8.8 6.9-10.8 fL Neutrophils (%) (Auto) 63.9 37.0-80.0 % Lymphocytes (%) (Auto) 22.7 10.0-50.0 % Monocytes (%) (Auto) 8.2 0.0-12.0 % Eosinophils (%) (Auto) 4.5 0.0-7.0 % Basophils (%) (Auto) 0.7 0.0-2.0 % Neutrophils # (Auto) 6.6 1.6-8.6 10 ^3/uL Lymphocytes # (Auto) 2.3 0.4-5.4 10 ^3/uL Monocytes # (Auto) 0.8 0-1.3 10 ^3/uL Eosinophils # (Auto) 0.5 0-0.8 10 ^3/uL Basophils # (Auto) 0.1 0-0.2 10 ^3/uL Nucleated Red Blood Cells 0.1 % Sodium Level 140 136-145 mmol/L Potassium Level 4.6 3.5-5.1 mmol/L Chloride Level 103 98-107 mmol/L Carbon Dioxide Level 27 20-31 mmol/L Anion Gap 10 5-15 Blood Urea Nitrogen 29 H 9-23 mg/dL Creatinine 2.05 H 0.700-1.30 mg/dL Glomerular Filtration Rate Calc 33 >90 mL/min BUN/Creatinine Ratio 14.1 10.0-20.0 Serum Glucose 80 74-106 mg/dL Calcium Level 10.1 8.7-10.4 mg/dL B-Type Natriuretic Peptide 34.57 0-100 pg/mL Parathyroid Hormone (Intact) 25.7 18.4-80.1 pg/mL Total Bilirubin 1.9 H 0.2-1.0 mg/dL Aspartate Amino Transferase (AST) 24 13-40 U/L Alanine Aminotransferase (ALT) 23 7-40 U/L Alkaline Phosphatase 118 H 46-116 U/L Total Protein 7.5 5.7-8.2 g/dL Albumin 4.5 3.2-4.8 g/dL Free Thyroxine (T4) Calculated 0.95 0.89-1.76 ng/dL Total Triiodothyronine (TT3) 0.68 0.60-1.81 ng/mL Thyroid Peroxidase Antibodies 184 H 0-34 IU/mL Lactic Acid Level 1.4 0.4-2.0 mmol/L Urine Color Yellow Yellow Urine Clarity Clear Clear Urine pH 6.0 5.0-9.0 Urine Specific [place] 1.013 1.001-1.035 Urine Protein Negative Negative Urine Ketones Negative Negative Urine Blood Negative Negative /uL Urine Nitrite Negative Negative Urine Bilirubin Negative Negative Urine Urobilinogen Normal Negative mg/dL Urine Leukocyte Esterase Negative Negative /uL Urine RBC <1 0 - 3 /hpf Urine Microscopic WBC < 1 0-3 /HPF Urine Squamous Epithelial Cells None seen <5 /hpf Urine Bacteria None seen None Seen /hpf Urine Sperm Present None Seen /hpf Urine Glucose Normal Normal mg/dL Urine Opiates Screen Neg NEGATIVE Urine Fentanyl Screen Neg NEGATIVE Urine Barbiturates Screen Neg NEGATIVE Urine Phencyclidine Screen Neg NEGATIVE Urine Amphetamines Screen Neg NEGATIVE Urine Benzodiazepines Screen Neg NEGATIVE Urine Cocaine Screen Neg NEGATIVE Urine Cannabinoids Screen Neg NEGATIVE Test 04/03/25 12:20 04/03/25 11:24 Range/Units Troponin I High Sensitivity 5 </=54 ng/L Prothrombin Time 11.4 9.3-11.8 sec Prothrombin Time INR 1.08 0.9-1.15 Activated Partial Thromboplast Time 28.2 24.5-34.5 SEC Hemoglobin A1c 4.7 <5.7 % A1C Phosphorus Level 2.3 L 2.4-5.1 mg/dL Magnesium Level 2.2 1.6-2.6 mg/dL Triglycerides Level 223 H < 150 mg/dL Cholesterol Level 165 < 200 mg/dL LDL Cholesterol 117 H < 100 mg/dL HDL Cholesterol 29 L 40-59 mg/dL Lipase 56 H 12-53 U/L Vitamin B12 Level 1988 H 211-911 pg/mL Vitamin D 25-Hydroxy 50.7 30.0-100 ng/mL Thyroid Stimulating Hormone (TSH) 29.64 H 0.55-4.78 uIU/mL Assessment 79-year-old male with a known history of hypertension, dyslipidemia, fatty liver, CKD stage 3, paroxysmal AFib currently in normal sinus rhythm, previous history of tobacco/alcohol/methamphetamine use presented to the hospital with a epigastric retrosternal chest pain along with shortness of breaths, patient was eventually admitted to telemetry, 1. Chest pain rule out OH 2. Paroxysmal AFib currently in normal sinus rhythm 3. Hypertension 4. Dyslipidemia 5. CKD stage 3 -trend troponins, 2D echo, cardiology consultation, stress test in a.m.. Problems(with codes): (1) Chest pain of unknown etiology Plan discussed with: Patient Date of Service: Apr 04, 2025 Billing Provider: LUZ CEJA MD Common Visit Codes: NOT BILLABLE LUZ CEJA MD Apr 05, 2025 15:45
--- NOTE | 2025-04-05 17:11 | DVHDS2 ---
Discharge Summary Date of Admission Apr 03, 2025 at 14:27 Date of Discharge: Apr 05, 2025 Labs/Diagnostic Data: Laboratory Results Test 04/05/25 16:22 04/05/25 05:00 04/04/25 04:45 04/03/25 14:48 Free Thyroxine (T4) Calculated 0.96 ng/dL (0.89-1.76) White Blood Count 10.3 10^3/uL (4.4-10.8) Red Blood Count 4.72 10^6/uL (4.5-5.90) Hemoglobin 15.5 g/dL (13.5-17.5) Hematocrit 44.2 % (41.0-53.0) Mean Corpuscular Volume 93.5 fL (80.0-100.0) Mean Corpuscular Hemoglobin 32.8 pg (28.0-32.0) Mean Corpuscular Hemoglobin Concent 35.1 g/dL (32.0-36.0) Red Cell Distribution Width 14.4 % (11.8-14.3) Platelet Count 227 10^3/uL (140-450) Mean Platelet Volume 8.8 fL (6.9-10.8) Neutrophils (%) (Auto) 63.9 % (37.0-80.0) Lymphocytes (%) (Auto) 22.7 % (10.0-50.0) Monocytes (%) (Auto) 8.2 % (0.0-12.0) Eosinophils (%) (Auto) 4.5 % (0.0-7.0) Basophils (%) (Auto) 0.7 % (0.0-2.0) Neutrophils # (Auto) 6.6 10 ^3/uL (1.6-8.6) Lymphocytes # (Auto) 2.3 10 ^3/uL (0.4-5.4) Monocytes # (Auto) 0.8 10 ^3/uL (0-1.3) Eosinophils # (Auto) 0.5 10 ^3/uL (0-0.8) Basophils # (Auto) 0.1 10 ^3/uL (0-0.2) Nucleated Red Blood Cells 0.1 % Sodium Level 140 mmol/L (136-145) Potassium Level 4.6 mmol/L (3.5-5.1) Chloride Level 103 mmol/L (98-107) Carbon Dioxide Level 27 mmol/L (20-31) Anion Gap 10 (5-15) Blood Urea Nitrogen 29 mg/dL (9-23) Creatinine 2.05 mg/dL (0.700-1.30) Glomerular Filtration Rate Calc 33 mL/min (>90) BUN/Creatinine Ratio 14.1 (10.0-20.0) Serum Glucose 80 mg/dL (74-106) Calcium Level 10.1 mg/dL (8.7-10.4) B-Type Natriuretic Peptide 34.57 pg/mL (0-100) Parathyroid Hormone (Intact) 25.7 pg/mL (18.4-80.1) Total Bilirubin 1.9 mg/dL (0.2-1.0) Aspartate Amino Transferase (AST) 24 U/L (13-40) Alanine Aminotransferase (ALT) 23 U/L (7-40) Alkaline Phosphatase 118 U/L (46-116) Total Protein 7.5 g/dL (5.7-8.2) Albumin 4.5 g/dL (3.2-4.8) Total Triiodothyronine (TT3) 0.68 ng/mL (0.60-1.81) Thyroid Peroxidase Antibodies 184 IU/mL (0-34) Lactic Acid Level 1.4 mmol/L (0.4-2.0) Test 04/03/25 14:27 04/03/25 12:20 04/03/25 11:24 Urine Color Yellow (Yellow) Urine Clarity Clear (Clear) Urine pH 6.0 (5.0-9.0) Urine Specific [place] 1.013 (1.001-1.035) Urine Protein Negative (Negative) Urine Ketones Negative (Negative) Urine Blood Negative /uL (Negative) Urine Nitrite Negative (Negative) Urine Bilirubin Negative (Negative) Urine Urobilinogen Normal mg/dL (Negative) Urine Leukocyte Esterase Negative /uL (Negative) Urine RBC <1 /hpf (0 - 3) Urine Microscopic WBC < 1 /HPF (0-3) Urine Squamous Epithelial Cells None seen /hpf (<5) Urine Bacteria None seen /hpf (None Seen) Urine Sperm Present /hpf (None Seen) Urine Glucose Normal mg/dL (Normal) Urine Opiates Screen Neg (NEGATIVE) Urine Fentanyl Screen Neg (NEGATIVE) Urine Barbiturates Screen Neg (NEGATIVE) Urine Phencyclidine Screen Neg (NEGATIVE) Urine Amphetamines Screen Neg (NEGATIVE) Urine Benzodiazepines Screen Neg (NEGATIVE) Urine Cocaine Screen Neg (NEGATIVE) Urine Cannabinoids Screen Neg (NEGATIVE) Troponin I High Sensitivity 5 ng/L (</=54) Prothrombin Time 11.4 sec (9.3-11.8) Prothrombin Time INR 1.08 (0.9-1.15) Activated Partial Thromboplast Time 28.2 SEC (24.5-34.5) Hemoglobin A1c 4.7 % A1C (<5.7) Phosphorus Level 2.3 mg/dL (2.4-5.1) Magnesium Level 2.2 mg/dL (1.6-2.6) Triglycerides Level 223 mg/dL (< 150) Cholesterol Level 165 mg/dL (< 200) LDL Cholesterol 117 mg/dL (< 100) HDL Cholesterol 29 mg/dL (40-59) Lipase 56 U/L (12-53) Vitamin B12 Level 1988 pg/mL (211-911) Vitamin D 25-Hydroxy 50.7 ng/mL (30.0-100) Thyroid Stimulating Hormone (TSH) 29.64 uIU/mL (0.55-4.78) Other Laboratory Tests 04/05/25 05:00 Brief Hx & Hospital Course: 79-year-old male with a known history of hypertension, dyslipidemia, CKD stage 3, paroxysmal AFib currently on Eliquis presented to the hospital with chest pain shortness a breath eventually patient was admitted to telemetry, cardiology was consulted patient underwent stress test which was negative for any reversible ischemia. Patient is currently cleared to be discharged with a close follow up as an outpatient with the PCP with a in one week with a repeat BMP. Condition at Discharge: Stable Final Diagnosis/Problems List 1. Chest pain ruled out [place] 2. Lexiscan stress test is negative 3. CKD stage 3 4. Hypertension 5. Dyslipidemia 6. Paroxysmal AFib 7. Hypothyroidism Discharge Disposition: Home SNF Discharge Will this Physician continue t: No Discharge Instruct/Medications Diet: Cardiac 2g Na,low cholest Activity: No Restrictions, As Tolerated Follow Up/Referral: Please follow up with the PCP with a repeat BMP in one week. Medications: Resume home medications. Continued Medications: Amlodipine Besylate (Norvasc Tablet) 5 Mg Tb 1 TAB PO DAILY, #30 TAB 5 Refills Apixaban Base (Eliquis) 5 Mg Tab 5 MG PO BID, TAB Atenolol (Atenolol) 25 Mg Tab 1 TAB PO DAILY, #30 TAB 5 Refills Febuxostat (Uloric) 40 Mg Tab 1 TAB PO DAILY, #90 TAB 1 Refill Hydrochlorothiazide (Hydrochlorothiazide) 25 Mg Tab 1 TAB PO DAILY, #30 TAB 5 Refills Levothyroxine Sodium (Levothyroxine Sodium) 112 Mcg Tab 1 TAB PO DAILY, #30 TAB 5 Refills Losartan Potassium (Losartan Potassium) 50 Mg Tab 1 TAB PO DAILY, #30 TAB 5 Refills Scheduled Amlodipine Besylate (Norvasc Tablet), 1 TAB PO DAILY, (Reported) Apixaban Base (Eliquis), 5 MG PO BID, (Reported) Atenolol (Atenolol), 1 TAB PO DAILY, (Reported) Febuxostat (Uloric), 1 TAB PO DAILY, (Reported) Hydrochlorothiazide (Hydrochlorothiazide), 1 TAB PO DAILY, (Reported) Levothyroxine Sodium (Levothyroxine Sodium), 1 TAB PO DAILY, (Reported) Losartan Potassium (Losartan Potassium), 1 TAB PO DAILY, (Reported) Discharge Statement: "Patient was advised to return to the ER or call 911 if any headaches, dizziness, shortness of breath, chest pain, abdominal pain, bleeding, fevers, or worsening of medical condition. Patient was counseled about treatment plan, medications, possible side effects, patientverbalized understanding. All questions were answered to the best of my ability. This discharge took greater then 30 minutes in planning, reviewing documentation, counseling the patient, and discussing with other team members." ASSESSMENT ASSESSMENT Assessment 1. Chest pain ruled out [place] 2. Lexiscan stress test is negative 3. CKD stage 3 4. Hypertension 5. Dyslipidemia 6. Paroxysmal AFib 7. Hypothyroidism Date of Service: Apr 05, 2025 Billing Provider: LUZ CEJA MD Common Visit Codes: NOT BILLABLE LUZ CEJA MD Apr 05, 2025 17:11
[2025-04-06] MEDS ORDERED: LEVOTHYROXINE SODIUM 50 MCG TAB PO SCH (06:00)
[2025-04-06] MEDS ORDERED: METO25TA5 PO (13:15)
[2025-04-06] MEDS ORDERED: LEVO75TA6 PO (13:15)
== END 2025-04-05 20:20 | disposition home or self-care (01) | DRG 205 ==
LOC: ER 11:07 → OVERFLOW 14:27 → TELE-CENTR 17:47
PROVIDERS: ADMIT Internal Medicine; ATTEND Internal Medicine
DX: M94.0 Chondrocostal junction syndrome [Tietze] (principal); N17.0 Acute kidney failure with tubular necrosis; D68.59 Other primary thrombophilia; E03.9 Hypothyroidism, unspecified; I48.0 Paroxysmal atrial fibrillation; E78.5 Hyperlipidemia, unspecified; E66.9 Obesity, unspecified; E11.22 Type 2 diabetes mellitus with diabetic chronic kidney disease; I12.9 Hypertensive chronic kidney disease with stage 1 through stage 4 chronic kidney disease, or unspecified chronic kidney disease; Z68.33 Body mass index [BMI] 33.0-33.9, adult; N18.30 Chronic kidney disease, stage 3 unspecified; K76.0 Fatty (change of) liver, not elsewhere classified; Z79.01 Long term (current) use of anticoagulants; Z82.49 Family history of ischemic heart disease and other diseases of the circulatory system; Z83.3 Family history of diabetes mellitus; Z85.828 Personal history of other malignant neoplasm of skin; Z87.891 Personal history of nicotine dependence
CPT/HCPCS: 36415; 71045; 76775; 78452; 80048; 80053; 80061; 80307; 81001; 82306; 82607; 83036; 83605; 83690; 83735; 83880; 83970; 84100; 84439; 84443; 84480; 84484; 85025; 85610; 85730; 86376; 86800; 93005; 93017; 93306; G0378